=== PATIENT | female | born 1980 | race Caucasian/White ===

== ENCOUNTER 2016-09-05 20:26 | Emergency (ER) | payer SELFPAY ==
[~2016-09-05] VITALS: Ht 170.2 cm; Wt 122.7 kg
[2016-09-05 20:34] VITALS: BP 157/80; TEMP 99.2
[2016-09-05] MEDS ORDERED: PROAIR HFA0.09 MG/AC IH (20:37)
[2016-09-05] MEDS ORDERED: TYLENOL W/COD1 UDTAB PO (22:18)
[2016-09-05 22:22] VITALS: PULSE 73
== END 2016-09-05 22:22 | disposition home or self-care (01) ==
LOC: COL.ER 20:26
DX: J45.909 Unspecified asthma, uncomplicated (principal); J06.9 Acute upper respiratory infection, unspecified; B34.9 Viral infection, unspecified; R05 Cough; R21 Rash and other nonspecific skin eruption

== ENCOUNTER 2016-11-11 17:58 | Emergency (ER) | payer SELFPAY ==
[~2016-11-11] VITALS: Ht 170.2 cm; Wt 129.5 kg
[~2016-11-11 17:58] MED LIST: PROAIR HFA0.09 MG/AC IH; TYLENOL W/COD1 UDTAB PO
[2016-11-11 18:09] VITALS: TEMP 98.6
[2016-11-11 19:10] LABS: PH 7 (5-8); URINE APPEARANCE Hazy; URINE BACTERIA None Seen /hpf; URINE BILIRUBIN Negative (NEGATIVE); URINE BLOOD Negative (NEGATIVE); URINE COLOR Yellow; URINE GLUCOSE Negative (NEGATIVE); URINE KETONE Negative (NEGATIVE); URINE RBC 0-2 /hpf
[2016-11-11 19:19] LABS: BASO % 0.2 % (0.0-2.0); EOS # 0.2 (0.0-0.7); EOS % 1.7 % (0-4.0); GRAN # 5.7 (1.4-6.5); GRAN % 64.7 % (42.2-75.2); HEMOGLOBIN 13.3 g/dl (12.5-16.0); LYMPH # 2.4 (1.2-3.4); LYMPH % 27.5 % (20.0-51.0); MEAN CELL VOLUME 91 fl (80.0-100.0); MEAN CORPUSCULAR HEMOGLOBIN 29 pg (27.0-31.0); MEAN CORPUSCULAR HGB CONC 32 g/dl (33.0-37.0); MEAN PLATELET VOLUME 9.9 fl (7.4-10.4); MONO # 0.5 (0.1-0.6); MONO % 5.7 % (1.7-9.3); PLATELET COUNT 384 K/mm3 (130-400); RED BLOOD COUNT 4.52 M/mm3 (4.10-5.30); REDCELL DISTRIBUTION WIDTH-CV 12.3 % (11.5-14.5); WHITE BLOOD COUNT 8.8 K/mm3 (4.8-10.8)
[2016-11-11 19:30] LABS: ADJUSTED CALCIUM 8.8 mg/dL (8.4-10.2); ALBUMIN 4.1 gm/dL (3.5-5.0); BILIRUBIN,TOTAL 0.5 mg/dL (0.0-1.0); C-REACTIVE PROTEIN 0.8 mg/dL (0.0-0.9); CALCIUM 8.9 mg/dL (8.4-10.2); CREATININE, serum 0.68 mg/dL (0.52-1.25); POTASSIUM 3.7 mmol/L (3.4-5.0); TOTAL PROTEIN 7.7 gm/dL (6.4-8.2)
[2016-11-11 21:50] VITALS: BP 107/74; PULSE 63
== END 2016-11-11 21:50 | disposition home or self-care (01) ==
LOC: COL.ER 17:58
PROVIDERS: Emergency Medicine
DX: R51 Headache (principal); R50.9 Fever, unspecified; J45.909 Unspecified asthma, uncomplicated
CPT/HCPCS: J2550; J7030

== ENCOUNTER 2017-01-19 17:22 | Emergency (ER) | payer SELFPAY ==
[~2017-01-19] VITALS: Ht 170.2 cm; Wt 122.7 kg
[2017-01-19 17:24] VITALS: BP 108/56; TEMP 99
[2017-01-19] MEDS ORDERED: PEN-VEE K500 MG PO ×2 (17:58→18:04)
[2017-01-19] MEDS ORDERED: NORCO 325 MG-51 TAB PO ×2 (17:58→18:05)
[2017-01-19 18:14] VITALS: PULSE 74
== END 2017-01-19 18:13 | disposition home or self-care (01) ==
LOC: COL.ER 17:22
DX: K08.89 Other specified disorders of teeth and supporting structures (principal); J45.909 Unspecified asthma, uncomplicated

== ENCOUNTER 2017-03-22 11:51 | Emergency (ER) | payer SELFPAY ==
[~2017-03-22] VITALS: Ht 170.2 cm; Wt 139.5 kg
[~2017-03-22 11:51] MED LIST changes: +NORCO 325 MG-51 TAB PO; +PEN-VEE K500 MG PO
[2017-03-22 12:04] VITALS: BP 107/56; TEMP 97.5
[2017-03-22 13:14] LABS: INFLUENZA A NEGATIVE; INFLUENZA B NEGATIVE
[2017-03-22 13:47] VITALS: PULSE 90
== END 2017-03-22 13:47 | disposition home or self-care (01) ==
LOC: COL.ER 11:51
PROVIDERS: Nurse Practitioner
DX: J06.9 Acute upper respiratory infection, unspecified (principal); J45.909 Unspecified asthma, uncomplicated

== ENCOUNTER 2017-05-28 20:52 | Emergency (ER) | payer SELFPAY ==
[~2017-05-28] VITALS: Ht 170.2 cm; Wt 122.7 kg
[2017-05-28 20:53] VITALS: TEMP 97.9
[2017-05-28 21:20] LABS: COLLECTION METHOD CLEAN CATCH
[2017-05-28 21:26] LABS: MUCOUS Present /lpf; PH 5 (5-8); SQUAMOUS EPITHELIAL 0-2 /hpf; URINE APPEARANCE Clear; URINE BACTERIA None Seen /hpf; URINE BILIRUBIN Negative (NEGATIVE); URINE BLOOD Negative (NEGATIVE); URINE COLOR Yellow; URINE GLUCOSE Negative (NEGATIVE); URINE KETONE Negative (NEGATIVE); URINE LEUKOCYTE ESTERASE Negative (NEGATIVE); URINE NITRATE Negative (NEGATIVE); URINE PROTEIN(semi-quant) Negative (NEGATIVE); URINE RBC 0-2 /hpf
[2017-05-28 21:56] LABS: BASO # 0.1 (0.0-0.2); BASO % 0.5 % (0.0-2.0); EOS # 0.2 (0.0-0.7); GRAN # 6.4 (1.4-6.5); GRAN % 62.7 % (42.2-75.2); HEMOGLOBIN 13.3 g/dl (12.5-16.0); LYMPH # 2.8 (1.2-3.4); LYMPH % 27.9 % (20.0-51.0); MEAN CELL VOLUME 89 fl (80.0-100.0); MEAN CORPUSCULAR HEMOGLOBIN 29 pg (27.0-31.0); MEAN CORPUSCULAR HGB CONC 32 g/dl (33.0-37.0); MEAN PLATELET VOLUME 10.2 fl (7.4-10.4); MONO # 0.7 (0.1-0.6); MONO % 6.7 % (1.7-9.3); PLATELET COUNT 385 K/mm3 (130-400); RED BLOOD COUNT 4.61 M/mm3 (4.10-5.30); REDCELL DISTRIBUTION WIDTH-CV 12.2 % (11.5-14.5)
[2017-05-28 22:06] LABS: ALBUMIN 4.1 gm/dL (3.5-5.0); BILIRUBIN,TOTAL 0.4 mg/dL (0.0-1.0); CALCIUM 8.9 mg/dL (8.4-10.2); CREATININE, serum 0.75 mg/dL (0.52-1.25); POTASSIUM 4.2 mmol/L (3.4-5.0); TOTAL PROTEIN 8.2 gm/dL (6.4-8.2)
[2017-05-28] MEDS ORDERED: NORCO 325 MG-51 TAB PO (23:12)
[2017-05-28 23:22] VITALS: PULSE 71
[2017-05-28 23:29] VITALS: BP 111/64
== END 2017-05-28 23:28 | disposition home or self-care (01) ==
LOC: COL.ER 20:52
PROVIDERS: Nurse Practitioner
DX: R10.9 Unspecified abdominal pain (principal); J45.909 Unspecified asthma, uncomplicated; Z87.448 Personal history of other diseases of urinary system; Z98.51 Tubal ligation status; Z98.890 Other specified postprocedural states
CPT/HCPCS: J1170; J7030

== ENCOUNTER 2017-08-09 12:25 | Emergency (ER) | payer SELFPAY ==
[~2017-08-09] VITALS: Ht 170.2 cm; Wt 122.7 kg
[2017-08-09 12:29] VITALS: BP 121/57; TEMP 97.2
[2017-08-09 13:46] VITALS: PULSE 64
== END 2017-08-09 13:47 | disposition home or self-care (01) ==
LOC: COL.ER 12:25
DX: S09.90XA Unspecified injury of head, initial encounter (principal); J45.909 Unspecified asthma, uncomplicated; W01.198A Fall on same level from slipping, tripping and stumbling with subsequent striking against other object, initial encounter; Y92.830 Public park as the place of occurrence of the external cause

== ENCOUNTER 2018-08-10 00:58 | Emergency (ER) | payer SELFPAY ==
[~2018-08-10] VITALS: Ht 170.2 cm; Wt 145.5 kg
[2018-08-10 01:20] VITALS: BP 114/61; TEMP 99.7
[2018-08-10 02:24] LABS: COLLECTION METHOD CLEAN CATCH
[2018-08-10 02:30] LABS: MUCOUS Present /lpf; PH 5 (5-8); SQUAMOUS EPITHELIAL 0-2 /hpf; URINE APPEARANCE Clear; URINE BACTERIA None Seen /hpf; URINE BILIRUBIN Negative (NEGATIVE); URINE BLOOD Negative (NEGATIVE); URINE COLOR Yellow; URINE GLUCOSE Negative (NEGATIVE); URINE KETONE Negative (NEGATIVE); URINE LEUKOCYTE ESTERASE Trace (NEGATIVE); URINE NITRATE Negative (NEGATIVE); URINE PROTEIN(semi-quant) Negative (NEGATIVE); URINE RBC 0-2 /hpf; URINE UROBILINOGEN Negative (NEGATIVE)
[2018-08-10] MEDS ORDERED: FLEXERIL 1010 MG/TAB PO (02:45)
[2018-08-10 03:15] VITALS: PULSE 79
== END 2018-08-10 03:15 | disposition home or self-care (01) ==
LOC: COL.ER 00:58
PROVIDERS: Nurse Practitioner
DX: M54.89 Other dorsalgia (principal); J45.909 Unspecified asthma, uncomplicated; Z90.89 Acquired absence of other organs

== ENCOUNTER 2019-01-14 21:59 | Emergency (ER) | payer MEDICAID ==
[~2019-01-14] VITALS: Ht 170.2 cm; Wt 122.7 kg
[~2019-01-14 21:59] MED LIST changes: +FLEXERIL 1010 MG/TAB PO
[2019-01-14 22:03] VITALS: BP 117/59
[2019-01-14] MEDS ORDERED: AMOXICILLIN 8751 TAB PO ×2 (22:09→22:42)
[2019-01-14] MEDS ORDERED: DETROL LA4 PO (22:16)
[2019-01-14] MEDS ORDERED: SINGULAIR 110 MG/TAB PO (22:16)
[2019-01-14] MEDS ORDERED: PRISTIQ 50 MG T50 MG PO (22:16)
[2019-01-14 22:45] VITALS: PULSE 84; TEMP 98.2
== END 2019-01-14 22:45 | disposition home or self-care (01) ==
LOC: COL.ER 21:59
DX: K08.89 Other specified disorders of teeth and supporting structures (principal)

== ENCOUNTER 2019-02-07 11:22 | Emergency (ER) | payer MEDICAID ==
[~2019-02-07] VITALS: Ht 170.2 cm; Wt 147.7 kg
[~2019-02-07 11:22] MED LIST changes: +AMOXICILLIN 8751 TAB PO; +DETROL LA4 PO; +PRISTIQ 50 MG T50 MG PO; +SINGULAIR 110 MG/TAB PO
[2019-02-07 11:28] VITALS: TEMP 97.7
[2019-02-07] MEDS ORDERED: IMITREX50 MG PO (11:32)
[2019-02-07] MEDS ORDERED: TOPAMAX 100MG100 M1 PO (11:33)
[2019-02-07 14:04] VITALS: BP 125/72; PULSE 84
== END 2019-02-07 14:04 | disposition home or self-care (01) ==
LOC: COL.ER 11:22
DX: G43.909 Migraine, unspecified, not intractable, without status migrainosus (principal); F43.10 Post-traumatic stress disorder, unspecified
CPT/HCPCS: J2270; J2550

== ENCOUNTER 2019-02-16 20:57 | Emergency (ER) | payer MEDICAID ==
[~2019-02-16] VITALS: Ht 170.2 cm; Wt 145.5 kg
[~2019-02-16 20:57] MED LIST changes: +IMITREX50 MG PO; +TOPAMAX 100MG100 M1 PO
[2019-02-16 21:19] VITALS: BP 127/78; TEMP 98.7
[2019-02-16] MEDS ORDERED: REMERON 15M15 MG/TA1 PO (21:23)
[2019-02-16] MEDS ORDERED: LIORESAL20 MG PO (21:24)
[2019-02-16] MEDS ORDERED: WELLBUTRIN SR150 M1 PO (21:25)
[2019-02-16 22:29] VITALS: PULSE 81
== END 2019-02-16 22:29 | disposition home or self-care (01) ==
LOC: COL.ER 20:57
DX: G43.909 Migraine, unspecified, not intractable, without status migrainosus (principal); F32.9 Major depressive disorder, single episode, unspecified
CPT/HCPCS: J2270; J2550

== ENCOUNTER 2019-03-01 15:22 | Emergency (ER) | payer MEDICAID ==
[~2019-03-01] VITALS: Ht 170.2 cm; Wt 145.5 kg
[~2019-03-01 15:22] MED LIST changes: +LIORESAL20 MG PO; +REMERON 15M15 MG/TA1 PO; +WELLBUTRIN SR150 M1 PO
[2019-03-01 15:56] VITALS: BP 115/59; PULSE 88; TEMP 98.6
== END 2019-03-01 19:17 | disposition left against medical advice (07) ==
LOC: COL.ER 15:22
DX: G43.909 Migraine, unspecified, not intractable, without status migrainosus (principal)

== ENCOUNTER 2019-03-13 19:17 | Emergency (ER) | payer MEDICAID ==
[~2019-03-13] VITALS: Ht 170.2 cm; Wt 145.5 kg
[2019-03-13 19:19] VITALS: TEMP 97
[2019-03-13] MEDS ORDERED: PRISTIQ100 MG PO (19:32)
[2019-03-13] MEDS ORDERED: CHILDREN'S100 MG/5 M PO (19:34)
[2019-03-13 21:44] VITALS: BP 123/92; PULSE 83
== END 2019-03-13 21:55 | disposition home or self-care (01) ==
LOC: COL.ER 19:17
DX: G43.909 Migraine, unspecified, not intractable, without status migrainosus (principal)
CPT/HCPCS: J0780

== ENCOUNTER 2019-03-27 19:12 | Emergency (ER) | payer MEDICAID ==
[~2019-03-27] VITALS: Ht 170.2 cm; Wt 145.5 kg
[~2019-03-27 19:12] MED LIST changes: +CHILDREN'S100 MG/5 M PO; +PRISTIQ100 MG PO
[2019-03-27 19:16] VITALS: BP 108/61; TEMP 98.7
[2019-03-27] MEDS ORDERED: COMPAZINE 110 MG/TAB PO (20:41)
[2019-03-27 21:00] VITALS: PULSE 80
== END 2019-03-27 21:00 | disposition home or self-care (01) ==
LOC: COL.ER 19:12
DX: G43.909 Migraine, unspecified, not intractable, without status migrainosus (principal); F43.10 Post-traumatic stress disorder, unspecified; F03.90 Unspecified dementia, unspecified severity, without behavioral disturbance, psychotic disturbance, mood disturbance, and anxiety; Z79.1 Long term (current) use of non-steroidal anti-inflammatories (NSAID)
CPT/HCPCS: J0780; J7030

== ENCOUNTER 2019-04-10 18:01 | Emergency (ER) | payer MEDICAID ==
[~2019-04-10] VITALS: Ht 170.2 cm; Wt 140.5 kg
[~2019-04-10 18:01] MED LIST changes: +COMPAZINE 110 MG/TAB PO
[2019-04-10 18:02] VITALS: TEMP 98.2
[2019-04-10] MEDS ORDERED: ZOFRAN 4MG T4 MG/TAB PO (18:15)
[2019-04-10] MEDS ORDERED: PRISTIQ100 MG PO (18:17)
[2019-04-10] MEDS ORDERED: ATARAX50 MG PO (18:19)
[2019-04-10 18:34] VITALS: BP 118/70
[2019-04-10 20:00] VITALS: PULSE 76
== END 2019-04-10 20:00 | disposition home or self-care (01) ==
LOC: COL.ER 18:01
DX: G43.909 Migraine, unspecified, not intractable, without status migrainosus (principal); F43.10 Post-traumatic stress disorder, unspecified; F41.9 Anxiety disorder, unspecified; J45.909 Unspecified asthma, uncomplicated; Z98.51 Tubal ligation status
CPT/HCPCS: J0780; J2270

== ENCOUNTER 2019-04-28 14:18 | Emergency (ER) | payer MEDICAID ==
[~2019-04-28] VITALS: Ht 170.2 cm; Wt 145.5 kg
[2019-04-28 14:18] VITALS: TEMP 98.1
[~2019-04-28 14:18] MED LIST changes: +ATARAX50 MG PO; +ZOFRAN 4MG T4 MG/TAB PO
[2019-04-28] MEDS ORDERED: NORCO 325 MG-51 TAB PO ×2 (14:56→15:29)
[2019-04-28 16:30] VITALS: BP 107/59; PULSE 91
== END 2019-04-28 16:30 | disposition home or self-care (01) ==
LOC: COL.ER 14:18
DX: G43.909 Migraine, unspecified, not intractable, without status migrainosus (principal)
CPT/HCPCS: J0780; J7030

== ENCOUNTER 2019-10-23 22:17 | Emergency (ER) | payer MEDICAID ==
[~2019-10-23] VITALS: Ht 152.4 cm; Wt 140.9 kg
[2019-10-23] MEDS ORDERED: AZO-CRANBERRY450 MG (22:53)
[2019-10-23] MEDS ORDERED: BACTRIM 400 MG-1 TAB PO (22:54)
[2019-10-23] MEDS ORDERED: D3-5050000 IU PO (22:54)
[2019-10-23] MEDS ORDERED: SINGULAIR 110 MG/TAB PO (22:55)
[2019-10-23] MEDS ORDERED: ABILIFY MYCITE10 MG PO (22:55)
[2019-10-23] MEDS ORDERED: COLACE 100100 MG/CAP PO (22:56)
[2019-10-23] MEDS ORDERED: IMITREX50 MG PO ×2 (22:56→22:59)
[2019-10-23] MEDS ORDERED: QUDEXY XR100 MG PO (22:57)
[2019-10-23] MEDS ORDERED: DEPAKOTE ER 50500 MG PO (22:57)
[2019-10-23] MEDS ORDERED: DETROL LA4 PO (22:57)
[2019-10-23] MEDS ORDERED: PRISTIQ100 MG PO (22:58)
[2019-10-23] MEDS ORDERED: ATARAX50 MG PO (22:58)
[2019-10-23] MEDS ORDERED: MAG-OX 400400 MG/TAB PO (22:59)
[2019-10-23 23:00] VITALS: TEMP 98.6
[2019-10-23] MEDS ORDERED: ATARAX 25MG25 MG/TAB PO (23:00)
[2019-10-24 00:26] VITALS: BP 112/78; PULSE 70
== END 2019-10-24 00:35 | disposition home or self-care (01) ==
LOC: COL.ER 22:17
DX: G43.909 Migraine, unspecified, not intractable, without status migrainosus (principal); J45.909 Unspecified asthma, uncomplicated; F43.12 Post-traumatic stress disorder, chronic; J30.2 Other seasonal allergic rhinitis; Z88.1 Allergy status to other antibiotic agents; Z88.6 Allergy status to analgesic agent
CPT/HCPCS: J2270; J2550

== ENCOUNTER 2019-11-16 16:29 | Emergency (ER) | payer MEDICAID ==
[~2019-11-16] VITALS: Ht 170.2 cm; Wt 140.9 kg
[~2019-11-16 16:29] MED LIST changes: +ABILIFY MYCITE10 MG PO; +ATARAX 25MG25 MG/TAB PO; +AZO-CRANBERRY450 MG; +BACTRIM 400 MG-1 TAB PO; +COLACE 100100 MG/CAP PO; +D3-5050000 IU PO; +DEPAKOTE ER 50500 MG PO; +MAG-OX 400400 MG/TAB PO; +QUDEXY XR100 MG PO
[2019-11-16 16:43] VITALS: BP 126/80; TEMP 98.6
[2019-11-16 18:45] VITALS: PULSE 74
== END 2019-11-16 18:48 | disposition home or self-care (01) ==
LOC: COL.ER 16:29
DX: G43.909 Migraine, unspecified, not intractable, without status migrainosus (principal); F32.9 Major depressive disorder, single episode, unspecified; Z79.899 Other long term (current) drug therapy; Z79.01 Long term (current) use of anticoagulants; Z79.811 Long term (current) use of aromatase inhibitors; Z88.6 Allergy status to analgesic agent; Z88.8 Allergy status to other drugs, medicaments and biological substances
CPT/HCPCS: J2270; J2550

== ENCOUNTER 2019-12-04 19:28 | Emergency (ER) | payer MEDICAID ==
[~2019-12-04] VITALS: Ht 170.2 cm; Wt 140.9 kg
[2019-12-04 19:32] VITALS: BP 108/75; TEMP 97.7
[2019-12-04 20:39] VITALS: PULSE 72
== END 2019-12-04 20:40 | disposition home or self-care (01) ==
LOC: COL.ER 19:28
DX: G43.909 Migraine, unspecified, not intractable, without status migrainosus (principal); F32.9 Major depressive disorder, single episode, unspecified; Z88.6 Allergy status to analgesic agent
CPT/HCPCS: J2270; J2550

== ENCOUNTER 2023-01-05 23:20 | Emergency (ER) | payer OTHER ==
[~2023-01-05] VITALS: Ht 170.2 cm; Wt 164.1 kg
[~2023-01-05 23:20] MED LIST changes: +BUSPAR10 MG PO; +DEPAKOTE 250MG250 MG PO; +DEPAKOTE500 MG PO; +INDERAL 10MG10 MG PO; +NEURONTIN300 MG/CAP PO; +PRIL40 PO; +PROVENTIL0.09 MG/A1 IH; +TYLENOL 500MG500 MG PO; +ZANAFLEX CAPSULE4 MG PO
[2023-01-05 23:26] VITALS: TEMP 97.8
[2023-01-05 23:52] LABS: BASO % 0.5 % (0.0-2.0); EOS # 0.2 K/mm3 (0.0-0.7); EOS % 2.3 % (0.0-4.0); GRAN # 5.1 K/mm3 (1.4-6.5); GRAN % 61.1 % (42.2-75.2); HEMATOCRIT 40.2 % (37.0-47.0); HEMOGLOBIN 12.7 g/dl (12.5-16.0); LYMPH # 2.3 K/mm3 (1.2-3.4); LYMPH % 27.4 % (20.0-51.0); MEAN CELL VOLUME 83 fl (80.0-100.0); MEAN CORPUSCULAR HEMOGLOBIN 26 pg (27-31); MEAN CORPUSCULAR HGB CONC 32 g/dl (33.0-37.0); MEAN PLATELET VOLUME 9.8 fl (7.4-10.4); MONO # 0.7 K/mm3 (0.1-0.6); MONO % 8.3 % (1.7-9.3); PLATELET COUNT 437 K/mm3 (130-400); RED BLOOD COUNT 4.83 M/mm3 (4.10-5.30); REDCELL DISTRIBUTION WIDTH-CV 15.7 % (11.5-14.5)
[2023-01-06 00:05] LABS: ALANINE AMINOTRANSFERASE 44 U/L (0-55); ALBUMIN 3.5 gm/dL (3.5-5.0); ALKALINE PHOSPHATASE 111 U/L (40-150); ANION GAP 11 mmol/L (7-16); AST,SGOT 44 U/L (5-34); BILIRUBIN,TOTAL 0.4 mg/dL (0.2-1.2); BLOOD UREA NITROGEN 11 mg/dL (7-19); CALCIUM 9.1 mg/dL (8.4-10.2); CARBON DIOXIDE 23 mmol/L (22-29); CHLORIDE 106 mmol/L (98-107); CREATININE, serum 0.86 mg/dL (0.57-1.11); GLUCOSE 101 mg/dL (70-99); POTASSIUM 4.4 mmol/L (3.5-4.5); SODIUM 140 mmol/L (136-145); TOTAL PROTEIN 8.2 gm/dL (6.2-8.1)
[2023-01-06 00:13] LABS: TROPONIN-I < 0.010 ng/mL (0.00-0.033)
[2023-01-06 04:36] VITALS: BP 123/73; PULSE 72
== END 2023-01-06 04:45 | disposition home or self-care (01) ==
LOC: COL.ER 23:20
PROVIDERS: Emergency Medicine
DX: R07.2 Precordial pain (principal); E66.01 Morbid (severe) obesity due to excess calories; Z68.43 Body mass index [BMI] 50.0-59.9, adult
CPT/HCPCS: J0780; J7030

== ENCOUNTER → 2023-02-21 | Outpatient (CLI) | payer OTHER | LOC: COL.CARD 09:45 | DX: R00.2 Palpitations (principal) ==

== ENCOUNTER → 2023-04-09 | Outpatient (CLI) | payer OTHER ==
[~2023-04-09] MED LIST changes: +Albuterol 0.083% Neb Soln 2.5 MG/3 ML UD IH ONE
== END ==
LOC: COL.CARD 11:38
DX: R06.02 Shortness of breath (principal)

== ENCOUNTER → 2023-04-11 | Outpatient (CLI) | payer OTHER ==
[~2023-04-11] MED LIST changes: +Methacholine Vial A (Clear Label Base-Cntrl) IH ONE; +Methacholine Vial B (Red Label) 0.0625 MG/ML 3 ML VIAL.NEB IH ONE; +Methacholine Vial C (Orange Label) 0.25 MG/ML 3 ML VIAL.NEB IH ONE; +Methacholine Vial D (Yellow Label) 1 MG/ML 3 ML VIAL.NEB IH ONE; +Methacholine Vial E (Green Label) 4 MG/ML 3 ML VIAL.NEB IH ONE
== END ==
LOC: COL.CARD 10:49
DX: R00.2 Palpitations (principal)
CPT/HCPCS: J7674